=== PATIENT | female | born 1970 | race Caucasian/White ===

== ENCOUNTER → 2016-07-10 | Outpatient (CLI) | payer OTHER | LOC: RAD 14:50 | PROVIDERS: ATTEND Surgery | DX: R10.33 Periumbilical pain (principal); K59.00 Constipation, unspecified; Z98.84 Bariatric surgery status; E66.01 Morbid (severe) obesity due to excess calories | CPT/HCPCS: 74177 ==

== ENCOUNTER → 2016-07-12 | Outpatient (CLI) | payer OTHER | LOC: RAD 17:09 | PROVIDERS: ATTEND Family Medicine | DX: R76.11 Nonspecific reaction to tuberculin skin test without active tuberculosis (principal) ==

== ENCOUNTER → 2017-03-25 | Outpatient (CLI) | payer OTHER ==
--- NOTE | 2017-03-25 16:48 | WOMENS IMAGING REPORT ---
EXAM DESCRIPTION: 3D SCREENING MAMMO BILAT COMPLETED DATE/TIME: 03/25/2017 9:38 am REASON FOR STUDY: ROUTINE SCREENING; Z12.31 Z12.31 ENCNTR SCREEN MAMMOGRAM FOR MALIGNANT NEOPLASM O F CASEY COMPARISON: 09/29/2015 and 01/25/2014. TECHNIQUE: Standard craniocaudal and mediolateral oblique views of each breast recorded using digita l acquisition and breast tomosynthesis. LIMITATIONS: None. FINDINGS: No masses, calcifications or architectural distortion. No areas of suspicion. Read with the assistance of CAD. .[facility] - R2 Cenova Version 1.3 .[facility] - R2 Cenova Version 1.3 .[facility] - R2 Cenova Version 2.4 .[facility]2 Cenova Version 2.4 .[facility] - R2 Silver Recovery Operator Version 9.2 IMPRESSION: NORMAL MAMMOGRAM. BIRADS 1. BREAST DENSITY: c. The breasts are heterogeneously dense, which may obscure small masses. BIRAD: 1 NEGATIVE RECOMMENDATION: ROUTINE SCREENING COMMENT: The patient has been notified of the results by letter per SA requirements. Additional no tification policies are in place for contacting patient with suspicious or incomplete findings. Quality ID #[id number]: The [employer] recommends an annual screening mammogram for women aged 40 years or over. This facility utilizes a reminder system to ensure that all patients receive reminder letters, and/or direct phone calls for appointments. This includes reminders for routine scr eening mammograms, diagnostic mammograms, or other Breast Imaging Interventions when appropriate. Th is patient will be placed in the appropriate reminder system. The [employer] (ACR) has developed recommendations for screening MRI of the breast s in certain patient populations, to be used in conjunction with mammography. Breast MRI surveillanc e may be appropriate for women with more than 20% lifetime risk of developing breast cancer as deter mined by genetic testing, significant family history of the disease, or history of mantle radiation f or Hodgkins Disease. ACR Practice Guidelines 2008. DBT Technology DBT is a type of tomographic mammography. With conventional mammography, overlapping breast tissue ma y make lesions difficult to detect, even with good compression. DBT uses an x-ray tube that rotates a round the breast, taking images at different angles. These images are then combined to create thin sl ices of the breast that the radiologist can view as a 3D reconstruction. The [employer] unit can perform full-field digital mammograms (2D imaging); or DBT (3D imaging); or both, in a combination mode that quickly performs both the mammogram and the tomosynthesis scan while the breast is still compressed. PQRS 6045F: Fluoroscopic imaging is not utilized for breast tomosynthesis. TECHNICAL DOCUMENTATION: FINDING NUMBER: (1) ASSESSMENT: (1) JOB ID: [id number] [employer]- All Rights Reserved
== END ==
LOC: WI 09:09
PROVIDERS: ATTEND Physician Assistant
DX: Z12.31 Encounter for screening mammogram for malignant neoplasm of breast (principal)
CPT/HCPCS: 77063; G0202; 77067

== ENCOUNTER 2018-02-23 22:01 | Emergency (ER) | payer SELFPAY ==
--- NOTE | 2018-02-23 23:11 | ER Document Report ---
ED General - General Chief Complaint: Leg Pain Stated Complaint: LEFT LEG PAIN Time Seen by Provider: 02/23/18 22:40 Notes: Patient is a 47-year-old female chronic medical problems who presents with 3 days of progressively worsening pain and swelling to her left lower extremity. Patient states that the pain started several days ago and has become progressively worse since that time. He describes this as a tightness, spasming pain to the posterior aspect of the leg just above the level of the knee. He states walking on it or ranging at the level of the knee worsens the pain. She denies any trauma to the area. She states that she became concerned when she began to notice swelling over the last 24 hours which has gotten progressively worse. She states that she has a prior history of a DVT in the setting of an operation but has never had an unprovoked DVT. She does not take any form of estrogen. She denies any shortness of breath or chest pain. She has not seen her general doctor regarding today's concerns. She denies any focal weakness or numbness. TRAVEL OUTSIDE OF THE [place] IN LAST 30 DAYS: No - Related Data Allergies/Adverse Reactions: ivp dye Allergy (Severe, Uncoded 05/28/16 10:37) ITCHY, RED BURNT SKIN Past Medical History - General Information source: Patient - Social History Smoking Status: Never Smoker Frequency of alcohol use: None Drug Abuse: None Family History: Reviewed & Not Pertinent - Past Medical History Cardiac Medical History: Denies: Hx Coronary Artery Disease, Hx Heart Attack, Hx Hypertension Pulmonary Medical History: Denies: Hx Asthma, Hx Bronchitis, Hx COPD, Hx Pneumonia Neurological Medical History: Denies: Hx Cerebrovascular Accident, Hx Seizures Musculoskeletal Medical History: Denies Hx Arthritis Psychiatric Medical History: Reports: Hx Anxiety Past Surgical History: Reports: Hx Abdominal Surgery - gastric bypass, Hx Appendectomy, Hx Section, Hx Cholecystectomy - Immunizations Hx Diphtheria, Pertussis, Tetanus Vaccination: Yes Review of Systems - Review of Systems Notes: Constitutional: Negative for fever. HENT: Negative for sore throat. Eyes: Negative for visual changes. Cardiovascular: Negative for chest pain. Respiratory: Negative for shortness of breath. Gastrointestinal: Negative for abdominal pain, vomiting or diarrhea. Genitourinary: Negative for dysuria. Musculoskeletal: Positive for left leg pain Skin: Negative for rash. Neurological: Negative for headaches, weakness or numbness. 10 point ROS negative except as marked above and in HPI. Physical Exam - Vital signs Vitals: Temp Pulse Resp BP Pulse Ox 97.8 F 72 16 135/83 H 99 02/23/18 22:07 02/23/18 22:07 02/23/18 22:07 02/23/18 22:07 02/23/18 22:07 Interpretation: Normal Notes: PHYSICAL EXAMINATION: GENERAL: Well-appearing, well-nourished and in no acute distress. HEAD: Atraumatic, normocephalic. EYES: Pupils equal round and reactive to light, extraocular movements intact, sclera anicteric, conjunctiva are normal. ENT: nares patent, oropharynx clear without exudates. Moist mucous membranes. NECK: Normal range of motion, supple without lymphadenopathy LUNGS: Breath sounds clear to auscultation bilaterally and equal. No wheezes rales or rhonchi. HEART: Regular rate and rhythm without murmurs ABDOMEN: Soft, nontender, normoactive bowel sounds. No guarding, no rebound. No masses appreciated. EXTREMITIES: Normal range of motion, 1+ pitting edema in the left lower extremity, none present on the right. Full flexion and extension at the knee without any obvious discomfort. There is pain on palpation of the popliteal fossa extending towards the mid hamstrings region NEUROLOGICAL: No focal neurological deficits. Moves all extremities spontaneously and on command. PSYCH: Normal mood, normal affect. SKIN: Warm, Dry, normal turgor, no rashes or lesions noted. Course - Re-evaluation Re-evalutation: 02/23/18 23:10 Patient presents with 3 days of progressively worsening pain and swelling to her distal left lower extremity. The patient reports throbbing pain behind her popliteal fossa and over the area of the hamstring. She has 1+ pitting edema in the left lower externally, none present in the right. 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 I am concerned about the possibility of an acute DVT but unfortunately we are unable to obtain a venous Doppler ultrasound at this time. An alternative consideration would include a musculoskeletal strain but given her edema I think this is less likely. I have offered that the patient can remain in the emergency department for the study until the morning but she has elected to go home and return in the morning. She has been given a dose of weight-based enoxaparin given my index of suspicion for this diagnosis. At this time will discharge with return precautions and follow-up recommendations. Verbal discharge instructions given a the bedside and opportunity for questions given. Medication warnings reviewed. Patient is in agreement with this plan and has verbalized understanding of return precautions and need to return to the emergency department in the morning for an ultrasound as discussed. - Vital Signs Vital signs: Temp Pulse Resp BP Pulse Ox 98.0 F 69 20 139/75 H 100 02/23/18 23:48 02/23/18 23:48 02/23/18 23:48 02/23/18 23:48 02/23/18 23:48 Discharge - Discharge Clinical Impression: Left leg pain, Possible left lower extremity DVT, Edema of left lower extremity Condition: Good Disposition: HOME, SELF-CARE Additional Instructions: Please return to the emergency department in the morning for an ultrasound of your leg to definitively exclude a blood clot in your left lower extremity. Due to my concern that you may have this diagnosis you have been given a dose of Lovenox tonight which is a blood thinning agent. Please return sooner if you have worsening of your pain, fever, discoloration of your foot, or any other symptoms that are worrisome to you. Referrals: ROB BAUER PA-C [NO LOCAL MD] - Follow up as needed
[2018-02-23] MEDS ORDERED: ENOXAPARIN SODIUM INJ 100 MG/1 ML DISP.SYRIN SUBCUT SCH (23:15)
[2018-02-23 23:58] VITALS: BP 139/75
== END 2018-02-23 23:58 | disposition home or self-care (01) ==
LOC: ER 22:01
DX: M79.605 Pain in left leg (principal); R60.9 Edema, unspecified; Z86.718 Personal history of other venous thrombosis and embolism; Z98.84 Bariatric surgery status; Z90.49 Acquired absence of other specified parts of digestive tract
CPT/HCPCS: 99283; 96372; L1830; J1650

== ENCOUNTER 2018-02-24 11:57 | Emergency (ER) | payer SELFPAY ==
--- NOTE | 2018-02-24 14:44 | ER Document Report ---
ED Medical Screen (RME) - General Mode of Arrival: Ambulatory Information source: Patient TRAVEL OUTSIDE OF THE [place] IN LAST 30 DAYS: No - General Chief Complaint: Leg Pain Stated Complaint: LEFT LEG PAIN Time Seen by Provider: 02/24/18 14:43 Notes: 47-year-old female with left lower extremity pain. She was evaluated last night and given a dose of anticoagulation with the plan of ultrasound today. She denies any chest pain, shortness of breath, fever. ([facility]) - Related Data Allergies/Adverse Reactions: ivp dye Allergy (Severe, Uncoded 02/24/18 13:57) ITCHY, RED BURNT SKIN Past Medical History - Social History Chew tobacco use (# tins/day): No Frequency of alcohol use: None Drug Abuse: None - Past Medical History Cardiac Medical History: Denies: Hx Coronary Artery Disease, Hx Heart Attack, Hx Hypertension Pulmonary Medical History: Denies: Hx Asthma, Hx Bronchitis, Hx COPD, Hx Pneumonia Neurological Medical History: Denies: Hx Cerebrovascular Accident, Hx Seizures Renal/ Medical History: Denies: Hx Peritoneal Dialysis Musculoskeltal Medical History: Denies Hx Arthritis Psychiatric Medical History: Reports: Hx Anxiety Past Surgical History: Reports: Hx Abdominal Surgery - gastric bypass, Hx Appendectomy, Hx Section, Hx Cholecystectomy - Immunizations Hx Diphtheria, Pertussis, Tetanus Vaccination: Yes - Vital signs Vitals: Temp Pulse Resp BP Pulse Ox 98.2 F 96 18 136/93 H 99 02/24/18 12:54 02/24/18 12:54 02/24/18 12:54 02/24/18 12:54 02/24/18 12:54 - Vital Signs Vital signs: Temp Pulse Resp BP Pulse Ox 98.7 F 73 16 113/61 100 02/24/18 17:29 02/24/18 17:29 02/24/18 17:29 02/24/18 17:29 02/24/18 17:29 Doctor's Discharge - Discharge Clinical Impression: Left leg pain, Edema of left lower extremity Left knee pain Qualifiers: Chronicity: acute Qualified Code(s): M25.562 - Pain in left knee Condition: Good Disposition: HOME, SELF-CARE Instructions: Sprained Knee ([facility]) Additional Instructions: Your ultrasound today does not show that you have a clot in your leg. Please continue to use your knee immobilizer. Please follow-up with your primary care physician for possible orthopedic referral. Prescriptions: Hydrocodone/Acetaminophen [[place] 5-325 mg Tablet] 1 tab PO Q6H #9 tablet Ibuprofen [Motrin 600 Mg Tablet] 600 mg PO TID #15 tablet Referrals: LOCAL,NO [Primary Care Provider] - Follow up as needed
--- NOTE | 2018-02-24 15:04 | RADIOLOGY REPORT (SQ) ---
EXAM DESCRIPTION: VENOUS UNILATERAL LOWER COMPLETED DATE/TIME: 02/24/2018 2:49 pm REASON FOR STUDY: lle pain COMPARISON: None. TECHNIQUE: Dynamic and static torres scale and color images acquired of the left leg venous system. Se lected spectral images acquired with additional compression and augmentation maneuvers. The contralat eral common femoral vein and saphenofemoral junction were also imaged. Images stored on PACS. LIMITATIONS: None. FINDINGS: LEFT COMMON FEMORAL: Normal phasicity, compression and augmentation. No visualized echogenic material on g ray scale. No defects on color images. FEMORAL: Normal compression and augmentation. No visualized echogenic material on torres scale. No defe cts on color images. POPLITEAL: Normal compression, augmentation. No visualized echogenic material on torres scale. No defec ts on color images. CALF VESSELS: Normal compression, augmentation. No visualized echogenic material on torres scale. No de fects on color images. GSV and SSV: Normal compression, augmentation. No visualized echogenic material on torres scale. No def ects on color images. ANY DEEP VENOUS INSUFFICIENCY: Not evaluated. ANY EVIDENCE OF POPLITEAL CYST: No. OTHER: No other significant finding. RIGHT COMMON FEMORAL VEIN AND SAPHENOFEMORAL JUNCTION: Normal phasicity, compression and augmentation. No visualized echogenic material on torres scale. No de fects on color images. IMPRESSION: NO EVIDENCE OF DVT OR SVT IN THE LEFT LEG. TECHNICAL DOCUMENTATION: JOB ID: [id number] [employer]- All Rights Reserved Reading location - IP/workstation name: [email or web address]
[2018-02-24 17:34] VITALS: BP 113/61
[2018-02-24] MEDS ORDERED: OXYCODONE-ACETAMINOPHEN 5-325 MG TABLET PO ONE (17:35)
--- NOTE | 2018-02-25 22:43 | ER Document Report ---
ED General - General Chief Complaint: Leg Pain Stated Complaint: LEFT LEG PAIN Time Seen by Provider: 02/24/18 14:43 Mode of Arrival: Ambulatory Information source: [facility] Records Notes: 47-year-old female with anxiety presents with complaint of right knee pain that started 1 week prior to arrival with worsening of pain over the last 3 days.. Pain is located behind her right knee and described as a constant cramping pain that is not relieved with Tylenol or Motrin. Patient was seen last night and treated with Lovenox for presumed DVT. She denies any prior history of PE, DVT. She denies any known injury, recent surgery, estrogen use, recent travel, history of cancer. She was placed in a knee immobilizer left knee and reports that this does help with her pain. She denies prior similar symptoms, fever, chills, chest pain, shortness of breath, abdominal pain. TRAVEL OUTSIDE OF THE [place] IN LAST 30 DAYS: No - HPI Onset: Last week Onset/Duration: Gradual, Persistent, Worse Quality of pain: Cramping Severity: Moderate Pain Level: 2 Associated symptoms: denies: Chest pain, Fever, Hurts to breath, Shortness of breath Exacerbated by: Walking Relieved by: Remaining still, Other - Knee immobilizer Similar symptoms previously: No Recently seen / treated by doctor: Yes - 02/23/2018 [facility] - Related Data Allergies/Adverse Reactions: ivp dye Allergy (Severe, Uncoded 02/24/18 13:57) ITCHY, RED BURNT SKIN Past Medical History - General Information source: Patient - Social History Smoking Status: Never Smoker Chew tobacco use (# tins/day): No Frequency of alcohol use: None Drug Abuse: None Lives with: Family Family History: Reviewed & Not Pertinent Patient has suicidal ideation: No Patient has homicidal ideation: No - Past Medical History Cardiac Medical History: Denies: Hx Coronary Artery Disease, Hx Heart Attack, Hx Hypertension Pulmonary Medical History: Denies: Hx Asthma, Hx Bronchitis, Hx COPD, Hx Pneumonia Neurological Medical History: Denies: Hx Cerebrovascular Accident, Hx Seizures Renal/ Medical History: Denies: Hx Peritoneal Dialysis Musculoskeletal Medical History: Denies Hx Arthritis Psychiatric Medical History: Reports: Hx Anxiety Past Surgical History: Reports: Hx Abdominal Surgery - gastric bypass, Hx Appendectomy, Hx Section, Hx Cholecystectomy - Immunizations Hx Diphtheria, Pertussis, Tetanus Vaccination: Yes Review of Systems - Review of Systems Notes: REVIEW OF SYSTEMS: CONSTITUTIONAL : Denies fever, chills, or sweats. Denies recent illness. Denies weight loss, recent hospitalizations. EENT: Denies visual changes, eye pain. Denies nasal or sinus congestion or discharge. Denies sore throat, oral lesions, difficulty swallowing. CARDIOVASCULAR: Denies chest pain. Denies palpitations. Denies lower extremity edema. RESPIRATORY: Denies cough, cold, or chest congestion. Denies shortness of breath, wheezing. GASTROINTESTINAL: Denies abdominal pain or distention. Denies nausea, vomiting , or diarrhea. Denies blood in vomitus, stools, or per rectum. Denies black, tarry stools. Denies constipation. GENITOURINARY: Denies difficulty urinating, painful urination, frequency, blood in urine, or vaginal discharge. MUSCULOSKELETAL: Denies back or neck pain or stiffness. Denies joint swelling. SKIN: Denies rash, lesions or sores. HEMATOLOGIC : Denies easy bruising or bleeding. LYMPHATIC: Denies swollen glands. NEUROLOGICAL: Denies confusion or altered mental status. Denies passing out or loss of consciousness. Denies dizziness or lightheadedness. Denies headache. Denies weakness or paralysis. Denies problems difficulty with ambulation, slurred speech. Denies sensory loss, numbness, or tingling. Denies seizures. PSYCHIATRIC: Denies anxiety or stress. Denies depression, suicidal ideation, or homicidal ideation. Denies visual or auditory hallucinations. Physical Exam - Vital signs Vitals: Temp Pulse Resp BP Pulse Ox 98.2 F 96 18 136/93 H 99 02/24/18 12:54 02/24/18 12:54 02/24/18 12:54 02/24/18 12:54 02/24/18 12:54 - Notes Notes: PHYSICAL EXAMINATION: GENERAL: Well-appearing, well-nourished and in no acute distress. HEAD: Atraumatic, normocephalic. EYES: Pupils equal round and reactive to light, extraocular movements intact, conjunctiva are normal. ENT: Nares patent, oropharynx clear without exudates. Moist mucous membranes. NECK: Normal range of motion, supple without lymphadenopathy LUNGS: Breath sounds clear to auscultation bilaterally and equal. No wheezes rales or rhonchi. HEART: Regular rate and rhythm without murmurs ABDOMEN: Soft, nontender, nondistended abdomen. No guarding, no rebound. No masses appreciated. Female : deferred Musculoskeletal: Normal range of motion, no pitting or edema. No cyanosis. Lower extremity without calf tenderness, calf swelling, erythema. DP pulse intact. Cap refill less than 2 seconds. Extensor mechanism intact of the right knee. No obvious effusion of the knee. NEUROLOGICAL: Cranial nerves grossly intact. Normal speech, normal gait. Normal sensory, motor exams PSYCH: Normal mood, normal affect. SKIN: Warm, Dry, normal turgor, no rashes or lesions noted. Course - Re-evaluation Re-evalutation: Venous Doppler Study 02/24/18 12:54 IMPRESSION: NO EVIDENCE OF DVT OR SVT IN THE LEFT LEG. 02/25/18 22:44 47-year-old female with anxiety presents with complaint of right knee pain that started 1 week prior to arrival with worsening of pain over the last 3 days.. Pain is located behind her right knee and described as a constant cramping pain that is not relieved with Tylenol or Motrin. Patient was seen last night and treated with Lovenox for presumed DVT. She denies any prior history of PE, DVT. She denies any known injury, recent surgery, estrogen use, recent travel, history of cancer. She was placed in a knee immobilizer left knee and reports that this does help with her pain. Patient was seen by myself upon arrival. Vital signs were reviewed. Patient is afebrile, normotensive and not hypoxic. Patient does not appear toxic or dehydrated. They are in no acute distress. Previous medical records and nursing notes reviewed. Patient has a normal physical exam. Her right lower extremity is without swelling, erythema or tenderness with palpation. Ultrasound was performed and negative for DVT no Bynum's cyst seen.. Patient was advised to ice, elevate and take anti- inflammatory medications as needed for pain. She was advised to use the knee immobilizer only for short period of time and that she should try to remain as active as possible. I did advise her that if pain persisted for greater than 5- 7 days or she noticed swelling to return for repeat ultrasound. Patient provided the opportunity to ask questions, and express concerns. Discharge instructions discussed. Patient is agreeable with discharge home. Return indications explained and discussed with the patient who displays understanding. Patient encouraged to return to the emergency department immediately with any concerns. - Vital Signs Vital signs: Temp Pulse Resp BP Pulse Ox 98.7 F 73 16 113/61 100 02/24/18 17:29 02/24/18 17:29 02/24/18 17:29 02/24/18 17:29 02/24/18 17:29 - Diagnostic Test Radiology reviewed: Image reviewed, Reports reviewed Discharge - Discharge Clinical Impression: Left leg pain Left knee pain Qualifiers: Chronicity: acute Qualified Code(s): M25.562 - Pain in left knee Right knee sprain Qualifiers: Encounter type: sequela Involved ligament of knee: unspecified ligament Qualified Code(s): S83.91XS - Sprain of unspecified site of right knee, sequela Condition: Good Disposition: HOME, SELF-CARE Instructions: Sprained Knee ([facility]) Additional Instructions: Your ultrasound today does not show that you have a clot in your leg. Please continue to use your knee immobilizer. Please follow-up with your primary care physician for possible orthopedic referral. Prescriptions: Hydrocodone/Acetaminophen [[place] 5-325 mg Tablet] 1 tab PO Q6H #9 tablet Ibuprofen [Motrin 600 Mg Tablet] 600 mg PO TID #15 tablet Referrals: LOCALMD,NO [NO LOCAL MD] - Follow up as needed
== END 2018-02-24 17:59 | disposition home or self-care (01) ==
LOC: ER 11:57
DX: M79.605 Pain in left leg (principal); M25.562 Pain in left knee; S83.91XS Sprain of unspecified site of right knee, sequela; M25.561 Pain in right knee; X58.XXXA Exposure to other specified factors, initial encounter; Z91.041 Radiographic dye allergy status
CPT/HCPCS: 93971; 99284

== ENCOUNTER → 2018-07-22 | Outpatient (CLI) | payer SELFPAY ==
--- NOTE | 2018-07-22 15:56 | WOMENS IMAGING REPORT ---
EXAM DESCRIPTION: BILAT SCREENING MAMMO W/CAD COMPLETED DATE/TIME: 07/22/2018 3:22 pm REASON FOR STUDY: SCREENING MAMMO Z12.31 ENCNTR SCREEN MAMMOGRAM FOR MALIGNANT NEOPLASM OF CASEY COMPARISON: [id number] TECHNIQUE: Standard craniocaudal and mediolateral oblique views of each breast recorded using digita l acquisition. LIMITATIONS: None. FINDINGS: Findings present which are benign by mammographic criteria. No suspicious masses, calcifi cations or architectural distortion. Pertinent benign findings: Vascular calcifications. Read with the assistance of CAD. .[facility] - R2 Cenova Version 1.3 .[facility] - R2 Cenova Version 1.3 .[facility] - R2 Cenova Version 2.4 .[facility] [place] R2 Cenova Version 2.4 .[facility] - R2 Plant Floor Automation Manager Version 9.2 Benign mammographic findings may include one or more of the following: Smooth masses, popcorn/rim/co arse calcifications, asymmetries, post-procedure changes, and lesions with long-standing stability. IMPRESSION: BENIGN MAMMOGRAPHIC FINDINGS. BIRADS 2 BREAST DENSITY: b. There are scattered areas of fibroglandular density. BIRAD: 2 BENIGN FINDING(S) RECOMMENDATION: ROUTINE SCREENING COMMENT: The patient has been notified of the results by letter per SA requirements. Additional no tification policies are in place for contacting patient with suspicious or incomplete findings. Quality ID #225: The [employer] recommends an annual screening mammogram for women aged 40 years or over. This facility utilizes a reminder system to ensure that all patients receive reminder letters, and/or direct phone calls for appointments. This includes reminders for routine scr eening mammograms, diagnostic mammograms, or other Breast Imaging Interventions when appropriate. Th is patient will be placed in the appropriate reminder system. The [employer] (ACR) has developed recommendations for screening MRI of the breast s in certain patient populations, to be used in conjunction with mammography. Breast MRI surveillanc e may be appropriate for women with more than 20% lifetime risk of developing breast cancer as deter mined by genetic testing, significant family history of the disease, or history of mantle radiation f or Hodgkins Disease. ACR Practice Guidelines 2008. TECHNICAL DOCUMENTATION: FINDING NUMBER: (1) ASSESSMENT: (1) JOB ID: [id number] [employer]- All Rights Reserved Reading location - IP/workstation name: [facility]
== END ==
LOC: WI 15:06
PROVIDERS: ATTEND Student in an Organized Health Care Education/Training Program
DX: Z12.31 Encounter for screening mammogram for malignant neoplasm of breast (principal)
CPT/HCPCS: 77067

== ENCOUNTER → 2018-10-08 | Outpatient (CLI) | payer SELFPAY ==
--- NOTE | 2018-10-08 16:48 | RADIOLOGY REPORT (SQ) ---
EXAM DESCRIPTION: U/S THYROID/SFT TISS HD NECK COMPLETED DATE/TIME: 10/08/2018 3:13 pm REASON FOR STUDY: R94.6 ABNORMAL RESULTS OF THYROID FUNCTION STUDIES R94.6 ABNORMAL RESULTS OF THYR OID FUNCTION STUDIES COMPARISON: None. TECHNIQUE: Dynamic and static torres-scale images acquired of the thyroid gland. Selected additional c olor/power Doppler images recorded. All images stored to PACS. LIMITATIONS: None. FINDINGS: The thyroid gland is diffusely small in size and heterogeneous in echogenicity likely rela atul to chronic thyroiditis. Right lobe thyroid is 5 by 1 x 1.5 cm in size, left lobe thyroid is 4.5 x 1 x 1.5 cm size. Isthmus 3 mm in thickness. IMPRESSION: Diffusely small thyroid gland with heterogeneous echotexture likely related to chronic t hyroiditis. No focal nodules. TECHNICAL DOCUMENTATION: JOB ID: [id number] [employer]- All Rights Reserved Reading location - IP/workstation name: [email or web address]
== END ==
LOC: RAD 14:23
PROVIDERS: ATTEND Student in an Organized Health Care Education/Training Program
DX: R94.6 Abnormal results of thyroid function studies (principal)
CPT/HCPCS: 76536

== ENCOUNTER 2019-07-16 20:31 | Emergency (ER) | payer SELFPAY ==
[2019-07-16] MEDS ORDERED: MORPHINE SULFATE 10 MG/ML INJ IV ONE (22:20)
[2019-07-16] MEDS ORDERED: ONDANSETRON 4 MG TAB.RAPDIS PO ONE (22:20)
--- NOTE | 2019-07-16 22:23 | ER Document Report ---
ED Medical Screen (RME) - General Chief Complaint: Abdominal Pain Stated Complaint: POST OP COMPLICATIONS Time Seen by Provider: 07/16/19 22:20 Primary Care Provider: DEON HERNANDEZ DO [Primary Care Provider] - Follow up as needed TRAVEL OUTSIDE OF THE [place] IN LAST 30 DAYS: No - HPI Notes: 07/16/19 22:21 49-year-old female to the emergency department with complaints of upper abdominal pain that began after she had a revision to her gastric bypass on Saturday. She states that she had this procedure done in [place]. She states that she did call her surgeon to let them know of her symptoms and she was directed to come to the emergency department. She states that she has been having nausea and vomiting. She states the most recent episodes of vomiting she has been seeing some blood. She denies any fevers or chills. She has had 1 small bowel movement since surgery. She states it was "hard rabbit pellets". She has not had any further bowel movement since. She is taking Tylenol 3 for her pain however she has not been able to keep it down and it has not helped. She denies cough, shortness of breath, chest pain. I performed a brief medical screening exam on the patient and determined that she will need further evaluation by main side provider. I placed orders and imaging studies in order to help expedite her care. - Related Data Allergies/Adverse Reactions: ivp dye Allergy (Severe, Uncoded 02/24/18 13:57) ITCHY, RED BURNT SKIN Past Medical History - Past Medical History Cardiac Medical History: Denies: Hx Coronary Artery Disease, Hx Heart Attack, Hx Hypertension Pulmonary Medical History: Denies: Hx Asthma, Hx Bronchitis, Hx COPD, Hx Pneumonia Neurological Medical History: Denies: Hx Cerebrovascular Accident, Hx Seizures Renal/ Medical History: Denies: Hx Peritoneal Dialysis Musculoskeltal Medical History: Denies Hx Arthritis Psychiatric Medical History: Reports: Hx Anxiety Past Surgical History: Reports: Hx Abdominal Surgery - gastric bypass, Hx Appendectomy, Hx Section, Hx Cholecystectomy - Immunizations Hx Diphtheria, Pertussis, Tetanus Vaccination: Yes Physical Exam - Vital signs Vitals: Temp Pulse Resp BP Pulse Ox 98 F 104 H 22 H 135/87 H 99 07/16/19 20:36 07/16/19 20:36 07/16/19 20:36 07/16/19 20:36 07/16/19 20:36 Course - Vital Signs Vital signs: Temp Pulse Resp BP Pulse Ox 98 F 104 H 22 H 135/87 H 99 07/16/19 20:36 07/16/19 20:36 07/16/19 20:36 07/16/19 20:36 07/16/19 20:36 Doctor's Discharge - Discharge Referrals: DEON HERNANDEZ DO [Primary Care Provider] - Follow up as needed
[2019-07-16 23:05] LABS: ABSOLUTE EOSINOPHILS # (AUTO) 0.1 10^3/uL (0.0-0.6); ABSOLUTE LYMPHOCYTES (AUTO) 0.7 10^3/uL (0.5-4.7); ABSOLUTE MONOCYTES (AUTO) 0.9 10^3/uL (0.1-1.4); ABSOLUTE NEUT (AUTO) 4.8 10^3/uL (1.7-8.2); BASOPHILS % (AUTO) 0.5 % (0-2); HEMATOCRIT 41.6 % (36.0-47.0); HEMOGLOBIN 14.1 g/dL (12.0-15.5); LYMPHOCYTES % (AUTO) 10.8 % (13-45); MEAN CORPUSCULAR HEMOGLOBIN 26.8 pg (27.0-33.4); MEAN CORPUSCULAR HGB CONC 33.8 g/dL (32.0-36.0); MEAN CORPUSCULAR VOLUME 79 fl (80-97); MONOCYTES % (AUTO) 14.1 % (3-13); PLATELET COUNT 342 10^3/uL (150-450); RED BLOOD COUNT 5.24 10^6/uL (3.72-5.28); RED CELL DISTRIBUTION WIDTH 14.7 % (11.5-14.0); SEGMENTED NEUTROPHILS % (AUTO) 73.6 % (42-78); TOTAL CELLS COUNTED % (AUTO) 100 %; WHITE BLOOD COUNT 6.5 10^3/uL (4.0-10.5)
[2019-07-16 23:27] LABS: ALBUMIN 4.6 g/dL (3.5-5.0); ALKALINE PHOSPHATASE 105 U/L (38-126); ANION GAP 13 (5-19); ASPARTATE AMINO TRANSFERASE 28 U/L (14-36); BILIRUBIN,DIRECT 0.3 mg/dL (0.0-0.4); BILIRUBIN,TOTAL 0.8 mg/dL (0.2-1.3); BLOOD UREA NITROGEN 13 mg/dL (7-20); CALCIUM 9.7 mg/dL (8.4-10.2); CARBON DIOXIDE 27 mmol/L (22-30); CHLORIDE 99 mmol/L (98-107); GLUCOSE 95 mg/dL (75-110); POTASSIUM 3.8 mmol/L (3.6-5.0); TOTAL PROTEIN 8.9 g/dL (6.3-8.2)
[2019-07-17] MEDS ORDERED: DEXAMETHASONE SOD PHOS INJ 10 MG/1 ML VIAL IV ONE (00:39)
[2019-07-17] MEDS ORDERED: FAMOTIDINE INJ/PF 20 MG/2 ML SDV IV ONE (00:39)
[2019-07-17] MEDS ORDERED: DIPHENHYDRAMINE HCL 50 MG/ML VIAL IV ONE (00:40)
--- NOTE | 2019-07-17 00:54 | ER Document Report ---
ED General - General Chief Complaint: Post Surgical Pain Stated Complaint: POST OP COMPLICATIONS Time Seen by Provider: 07/16/19 22:20 Primary Care Provider: DEON HERNANDEZ DO [Primary Care Provider] - Follow up as needed Information source: Patient TRAVEL OUTSIDE OF THE [place] IN LAST 30 DAYS: No - HPI Onset: Other - Patient had the second revision to her gastric bypass done on Saturday by [phone] Onset/Duration: Sudden, Worse Quality of pain: Sharp Severity: Severe Pain Level: 5 Associated symptoms: Nausea, Vomiting, Other - Bloody vomitus Exacerbated by: Other - Water fluids or food; she has had one bottle of vitamin water over 24 hours and is quite dehydrated both with lips and tongue and skin turgor Relieved by: Remaining still - Related Data Allergies/Adverse Reactions: ivp dye Allergy (Severe, Uncoded 02/24/18 13:57) ITCHY, RED BURNT SKIN Past Medical History - Social History Smoking Status: Unknown if Ever Smoked Family History: Reviewed & Not Pertinent Patient has suicidal ideation: No Patient has homicidal ideation: No - Past Medical History Cardiac Medical History: Denies: Hx Coronary Artery Disease, Hx Heart Attack, Hx Hypertension Pulmonary Medical History: Denies: Hx Asthma, Hx Bronchitis, Hx COPD, Hx Pneumonia Neurological Medical History: Denies: Hx Cerebrovascular Accident, Hx Seizures Renal/ Medical History: Denies: Hx Peritoneal Dialysis Musculoskeletal Medical History: Denies Hx Arthritis Psychiatric Medical History: Reports: Hx Anxiety Past Surgical History: Reports: Hx Abdominal Surgery - gastric bypass, Hx Appendectomy, Hx Section, Hx Cholecystectomy - Immunizations Hx Diphtheria, Pertussis, Tetanus Vaccination: Yes Review of Systems - Review of Systems Constitutional: Weakness, Weight loss Gastrointestinal: Abdominal pain - Patient points to periumbilical and headaches upper quadrant abdominal pain, Nausea, Vomiting Physical Exam - Vital signs Vitals: Temp Pulse Resp BP Pulse Ox 98 F 104 H 22 H 135/87 H 99 07/16/19 20:36 07/16/19 20:36 07/16/19 20:36 07/16/19 20:36 07/16/19 20:36 Interpretation: Tachycardic - General General appearance: Alert In distress: Moderate - Abdominal Inspection: Normal, Other - She had surgery through esophagus according to patient history Distension: No distension Bowel sounds: Hyperactive Tenderness: Tender Organomegaly: No organomegaly Course - Re-evaluation Re-evalutation: 07/17/19 03:23 Patient much improved after medications - Vital Signs Vital signs: Temp Pulse Resp BP Pulse Ox 98 F 104 H 11 L 110/62 97 07/16/19 20:36 07/16/19 20:36 07/17/19 04:01 07/17/19 04:01 07/17/19 04:01 - Laboratory Result Diagrams: 07/16/19 22:49 07/16/19 22:49 Laboratory results interpreted by me: 07/16/19 07/16/19 07/17/19 22:49 22:49 02:25 MCV 79 L MCH 26.8 L RDW 14.7 H Lymph % (Auto) 10.8 L [place] % (Auto) 14.1 H Total Protein 8.9 H Urine Ketones 20 H Urine Urobilinogen 4.0 H Ur Leukocyte Esterase TRACE H - Diagnostic Test Radiology reviewed: Reports reviewed Critical Care Note - Critical Care Note Total time excluding time spent on procedures (mins): 60 Comments: Spoke with Dr. Graves at 0 [phone] and he advises suppositories like Phenergan for nausea and belly pain and try to get her pain under control prior to discharge Discharge - Discharge Clinical Impression: Abdominal pain, Vomiting, Dehydration, Status following gastric bypass for weight loss Condition: Fair Disposition: HOME, SELF-CARE Instructions: Abdominal Pain ([facility]) Additional Instructions: Follow-up with tomorrow take medicines as directed have her drive you home and avoid any milk or meat products for at least 24 hours Prescriptions: Prochlorperazine Maleate [Compazine 10 mg Tablet] 10 mg PO TID PRN 4 Days #10 tablet PRN Reason: Promethazine HCl [Phenergan 25 mg Supp.rect] 1 supp VT Q6H #12 supp.rect Referrals: DEON HERNANDEZ DO [Primary Care Provider] - Follow up as needed
[2019-07-17] MEDS ORDERED: MORPHINE SULFATE 10 MG/ML INJ IV ONE (00:57)
[2019-07-17 02:38] LABS: APPEARANCE,URINE SLIGHTLY-CLOUDY; BILIRUBIN,URINE NEGATIVE (NEGATIVE); COLOR,URINE YELLOW; GLUCOSE, URINE NEGATIVE (NEGATIVE); KETONES,URINE 20 mg/dL (NEGATIVE); LEUKOCYTE ESTERASE,URINE TRACE (NEGATIVE); NITRITE,URINE NEGATIVE (NEGATIVE); PROTEIN,URINE NEGATIVE (NEGATIVE); URINE SPECIFIC GRAVITY 1.047
--- NOTE | 2019-07-17 02:54 | RADIOLOGY REPORT (SQ) ---
EXAM: CT abdomen and pelvis with IV contrast CLINICAL DATA: 49-year-old female with abdominal pain, nausea and vomiting and recent surgery two days ago TECHNICAL DATA: Axial CT imaging of the abdomen and pelvis was performed following the administration of intravenous contrast.. Sagittal and coronal reconstructed images were then performed. The CT study is performed according to ALARA (as low as reasonably achievable) or ALARA/IMAGE GENTLY, with automatic adjustment of mA and/or kV according to patient size. Performed on: 07/17/2019 oh 2:00 AM. Comparison: CT abdomen and pelvis with contrast performed on 07/10/2016 FINDINGS: Lung bases: The lung bases are grossly clear. There is minimal dependent atelectasis and/or fibrosis. Liver: The liver is top normal in size and is normal in configuration. There is a small 1.4 cm cyst along the medial aspect of the liver between the left and right hepatic lobes in the region of the gallbladder fossa. There is slightly decreased attenuation of the liver commonly seen with fatty infiltration. Spleen: The spleen is top normal in size and is normal in configuration and attenuation. Gallbladder and bile duct: The gallbladder is surgically absent. There is no biliary ductal dilatation. Pancreas: The pancreas is grossly normal in size and configuration. Adrenal Glands:The adrenal glands are normal in size and configuration. Kidneys:The kidneys are normal in size and configuration. There is no evidence of hydronephrosis. There is no evidence of nephrolithiasis. No definite solid or cystic renal mass lesions are identified. Stomach: Again demonstrated are postsurgical changes of the stomach consistent with prior gastric bypass surgery. There is no definite hiatal hernia. Bowel:The bowel gas pattern is non specific and non obstructive. Appendix: The appendix is not visualized on this examination. Free air:There is no evidence of free air. Free fluid: There is no evidence of free fluid. Vasculature: The aorta is normal in caliber and contour. The inferior vena cava is grossly unremarkable. Lymphadenopathy: No pathologic lymphadenopathy is identified. Bladder: The bladder is well distended and smooth in contour. Reproductive: The uterus is surgically absent. Again demonstrated is a anterior left adnexal cyst measuring approximate 5.4 x 3.3 x 3.5 cm similar when compared to the prior study. This is also similar in size when compared to the study performed on 01/24/2016. Bones: No acute osseous abnormalities are identified. There is degenerative disc disease at L1-L2. Soft tissues: No focal soft tissue abnormalities are identified. IMPRESSION: 1. No definite acute intra-abdominal or intrapelvic pathology. 2. Borderline hepatosplenomegaly. 3. Slightly decreased attenuation of the liver commonly seen with fatty infiltration. 4. Stable small 1.4 cm hepatic cyst. 5. Postsurgical changes of the stomach consistent with prior gastric bypass surgery. 6. Prior hysterectomy. 7. Grossly stable anterior left adnexal cyst measuring approximately 5.4 x 3.3 x 3.5 cm similar when compared to the prior study and the prior study performed on 01/24/2016. The lack of interval change favors a benign process.
[2019-07-17] MEDS ORDERED: NORMAL SALINE 1000 ML 1,000 ML IV ONE (03:29)
[2019-07-17] MEDS ORDERED: HYDROMORPHONE HCL INJ/PF 2 MG/ML AMPULE IV ONE (03:29)
[2019-07-17] MEDS ORDERED: SUCRALFATE 1 GM TABLET PO ONE (04:56)
[2019-07-17 06:14] VITALS: BP 90/46
== END 2019-07-17 06:14 | disposition home or self-care (01) ==
LOC: ER 20:31
DX: G89.18 Other acute postprocedural pain (principal); R11.2 Nausea with vomiting, unspecified; E86.0 Dehydration; R10.10 Upper abdominal pain, unspecified; R00.0 Tachycardia, unspecified; Z98.84 Bariatric surgery status; Z90.49 Acquired absence of other specified parts of digestive tract
CPT/HCPCS: 96376; 99285; 96361; 96374; 96375; 36415; 83690; 85025; 80053; 81001; 74177; J1200; S0119; J2270 ×2; J1170; J7030; S0028; J1100